=== PATIENT | male | born 1955 | race Caucasian/White ===

== ENCOUNTER 2016-07-24 01:26 | Day surgery (SDC) | payer MEDICAID ==
[~2016-07-24 01:26] MED LIST: AMLO5TAB2 PO; ASPI-973 PO; CHOL10008 PO; DEXL60CA5 PO; FISH1CAP15 PO; FLUO20CA25 PO; ISOS20TA4 PO; LEVO88TA4 PO; METO-272 PO; NITR0.4T6 SL; PANT40TA2 PO; RANI150T11 PO; VIT1TABL83 PO
[2016-07-24] MEDS ORDERED: Lactated Ringer's 1,000 ML IV ONE (06:00)
--- NOTE | 2016-07-24 07:29 | PCM.HPANE ---
Patient Data Surgeon Admitting Provider: Attending Provider:Israel Gibson MD Primary Care Physician:Shan Howe DO Other [place] Anesthesia Reason for Visit Screening, Epigastric Pain Ht/WT & BMI Body Mass Index Allergies Coded Allergies: gemfibrozil (Verified Allergy, Severe, Rash, 05/04/15) pravastatin (Verified Allergy, Severe, MYALGIAS, 05/04/15) ranolazine (Verified Allergy, Severe, EDEMA, HEARTBURN, 05/04/15) Past Anesthesia History Anesthesia History: Denies:: Abnormal Airway, Anesthesia Reactions, Difficult Intubation, Fam Anesthesia Reaction, Fam Malignant Hypertherm, Malignant Hyperthermia Diabetes History Hx Diabetes?: No MRSA MRSA: No Medications Blood Thinner: Aspirin Active Scripts Pantoprazole DR (Protonix)40 Mg Noworm05 Mg PO BID #60 TABLET Ref 0 Prov:Oscar Wilder 02/04/15 Metoprolol Succinate ER 50 Mg Vwmgwz83 Mg PO BID #60 Prov:Oscar Wilder 02/04/15 Reported Medications Dexlansoprazole ER (Dexilant)60 Mg Eituawm87 Mg PO DAILY 30 Days Ref 0 07/23/16 Ranitidine (Zantac)150 Mg Pgdrwr785 Mg PO BID 07/23/16 Cholecalciferol (Vitamin D3) (Vitamin D3)1,000 Unit Tab.chew1,000 Unit PO DAILY 09/27/15 Isosorbide MN 20 Mg Jkgjja72 Mg PO DAILY 05/06/15 Amlodipine 5 Mg Tablet5 Mg PO DAILY Ref 0 05/04/15 Vit B Comp/C/FA/Iron/Vit E (Vitamin B Complex Tablet)1 Each Tablet1 Each PO DAILY 02/02/15 Aspirin 81 Mg Qzyjef86 Mg PO HS 02/02/15 Fish Oil/Dha/Epa (Fish Oil 1,200 mg Fish Oil)1 Each Capsule1 Each PO PRN 07/16/14 Fluoxetine 20 Mg Jajieoh07 Mg PO MORNING 06/28/14 Levothyroxine 88 Mcg Ximglj18 Mcg PO HS 12/07/13 Nitroglycerin SL 0.4 Mg Tab.subl0.4 Mg SL PRN PRN For Chest Pain 12/07/13 Discontinued Reported Medications Pregabalin (Lyrica)75 Mg Dgimvjt862 Mg PO HS 02/02/15 Pregabalin (Lyrica)75 Mg Gwqlgew11 Mg PO MORNING 02/02/15 History History of ENT Problems?: Yes HEENT History: Positive for:: Cataracts (needs to get them done still) Dysphagia (due to reflux) Denies:: Abnormal Airway Difficult Intubation Hearing Problem Sinus Problem TMJ Hx of Heart Problems?: Yes Cardiovascular History: Positive for:: Cardiac Surgery (angioplasty, stents 2000, 2010, 2011) Chest Pain (MULT MN'S/ANGINA) Hypertension Denies:: Atrial Fibrillation Congestive Heart Failure Edema Heart Murmur Irregular Heartbeat Pacemaker Thrombophlebitis Valvular Heart Disease Hx of Respiratory Problem?: No Respiratory History: Denies:: Asthma COPD Chest Surgery Dyspnea Emphysema Hemoptysis Pneumonia Tuberculosis Hx Neurologic Problems?: No Neurological History: Positive for:: Dizziness Denies:: Alzheimer's Disease CVA Dementia Headaches Parkinson's Disease Seizures Hx of GI Problems?: No Gastrointestinal History: Positive for:: Gastroesphageal Reflux Heartburn Rectal Bleeding (BLACK TARRY X1) Denies:: Cirrhosis Diverticulitis Gastrointestinal Bleeding Hepatitis Hiatal Hernia Hx of Problems?: No Genitourinary History: Denies:: HX of Hemodialysis Kidney Stones Urinary Tract Infection HX of Peritoneal Dialysis: No Male Hx: Positive for:: Prostate Problems (PROSTATISTIS ) Denies:: Scrotal Mass Testicular Surgery Skin History: Positive for:: History Skin Disorders? 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 Category 1B: Patient has history of documented sleep apnea, and HAS received any narcotic , sedative or anesthesia administration during this stay Category 2: Patient has SUSPECTED Obstructive Sleep Apnea, and HAS received any narcotic , sedative or anesthesia administration during this stay. Category 3: Patient has SUSPECTED Obstructive Sleep Apnea and HAS NOT received narcotic, sedative or anesthesia administration during this stay. Category 4: Outpatient in Procedural Areas with known sleep apnea or who screen positive for High Risk via the STOP/BANG questionnaire. Plan Impression Patient chart reviewed, patient interviewed and anesthestic plan with risks, benefits, and alternatives discussed, and informed consent obtained. NPO Status: 07/19 at 1800 Franco Blanco MD Jul 24, 2016 07:29
[2016-09-26] MEDS ORDERED: LEVO100T6 PO (14:21)
[2016-09-26] MEDS ORDERED: LISI-571 PO (14:21)
[2016-09-26] MEDS ORDERED: CLOP75TA3 PO (14:21)
== END 2016-07-24 23:59 | disposition home or self-care (01) ==
LOC: END 01:26
PROVIDERS: ATTEND Internal Medicine Gastroenterology
DX: Z12.11 Encounter for screening for malignant neoplasm of colon (principal); R10.13 Epigastric pain; Z53.8 Procedure and treatment not carried out for other reasons

== ENCOUNTER 2016-11-06 10:30 | Day surgery (SDC) | payer MEDICAID ==
[~2016-11-06] VITALS: Ht 165.1 cm; Wt 70.3 kg
[~2016-11-06 10:30] MED LIST changes: -AMLO5TAB2 PO; +CLOP75TA3 PO; -DEXL60CA5 PO; +GABA-502 PO; +LEVO100T6 PO; -LEVO88TA4 PO; +LISI-571 PO; +Lactated Ringer's 1,000 ML IV ONE; +NORT50CA PO; -RANI150T11 PO; +SUCR1TAB30 PO
[2016-11-06] MEDS ORDERED: fentaNYL-PF 50 mCg/mL 2 mL Inj ONE (10:31)
[2016-11-06] MEDS ORDERED: Propofol 10,000 mCg/mL 20 mL Inj ONE (10:31)
[2016-11-06 11:12] VITALS: BP 112/64; PULSE 67; RESP 16; O2SAT 99
--- NOTE | 2016-11-06 11:40 | PCM.HPANE ---
Patient Data Surgeon Admitting Provider: Attending Provider:Israel Gibson MD Primary Care Physician:Gia Bellamy DO Other Provider:Chelsy Romo Anesthesia Reason for Visit Colon Ca Screen/Epigastric Pain Z12.11 R10.13 Ht/WT & BMI Height (Feet): 5 Height (Inches): 5 Weight (Kilograms): 70.31 Body Mass Index 25.00 Allergies Coded Allergies: gemfibrozil (Verified Allergy, Severe, Rash, 05/04/15) pravastatin (Verified Allergy, Severe, MYALGIAS, 05/04/15) ranolazine (Verified Allergy, Severe, EDEMA, HEARTBURN, 05/04/15) Gkmasad-Suz-Rwq Reductase Inhibitor (Verified Allergy, Unknown, 11/05/16) ezetimibe (Verified Allergy, Unknown, 11/05/16) pregabalin (Verified Allergy, Unknown, 11/05/16) Past Anesthesia History Anesthesia History: Denies:: Abnormal Airway, Anesthesia Reactions, Difficult Intubation, Fam Anesthesia Reaction, Fam Malignant Hypertherm, Malignant Hyperthermia Diabetes History Hx Diabetes?: No MRSA MRSA: No Medications Blood Thinner: Aspirin, Plavix Last Dose Blood Thinner: Oct 30, 2016 Home Meds Incl Beta Chaka: Yes Date Beta Chaka Taken: Nov 06, 2016 Time Beta Chaka Taken: [address] (Protonix)40 Mg Zlkdqo64 Mg PO BID #60 TABLET Ref 0 Prov:Oscar Wilder 02/04/15 Metoprolol Succinate ER 50 Mg Adkawy85 Mg PO BID #60 Prov:Oscar Wilder 02/04/15 Reported Medications Vit B Comp/C/FA/Iron/Vit E (Vitamin B Complex Tablet)1 Each Tablet1 Each PO DAILY 11/05/16 Nortriptyline 50 Mg Ahsaide84 Mg PO DAILY 11/05/16 Gabapentin 300 Mg Pafxwxd418 Mg PO TID Ref 0 11/05/16 Clopidogrel Bisulfate (Plavix)75 Mg Edkuuu66 Mg PO DAILY Ref 0 09/26/16 Lisinopril 5 Mg Tablet5 Mg PO DAILY Ref 0 09/26/16 Levothyroxine 100 Mcg Mkpdaa901 Mcg PO DAILY For Thyroid Replacement Ref 0 09/26/16 Cholecalciferol (Vitamin D3) (Vitamin D3)1,000 Unit Tab.chew2,000 Unit PO DAILY 5/31/16 Isosorbide MN 20 Mg Jbmkuh70 Mg PO DAILY 05/06/15 Vit B Comp/C/FA/Iron/Vit E (Vitamin B Complex Tablet)1 Each Tablet1 Each PO DAILY 02/02/15 Aspirin 81 Mg Mnxznw61 Mg PO HS 02/02/15 Fish Oil/Dha/Epa (Fish Oil 1,200 mg Fish Oil)1 Each Capsule1 Each PO PRN 07/16/14 Fluoxetine 20 Mg Cwghcqf69 Mg PO MORNING 06/28/14 Nitroglycerin SL 0.4 Mg Tab.subl0.4 Mg SL PRN PRN For Chest Pain 12/07/13 Discontinued Reported Medications Sucralfate (Carafate)1 Gm Tablet1 Gm PO QID Ref 0 11/05/16 History History of ENT Problems?: Yes HEENT History: Positive for:: Cataracts (needs to get them done still) Dysphagia (BAD EPSIDOSE IN JULY ) Denies:: Abnormal Airway Difficult Intubation Hearing Problem Sinus Problem TMJ Denture Type: None Teeth Condition: Within Normal Limits Hx of Heart Problems?: Yes Cardiovascular History: Positive for:: Cardiac Surgery (angioplasty, stents 2000, 2010, 2011) Chest Pain (LAST TOOK NITRO IN 08/2016) Hypertension Denies:: AICD Atrial Fibrillation (HX OF RUN OF V-TACH. FREQUENT PAC'S) Congestive Heart Failure Edema Heart Murmur Irregular Heartbeat Pacemaker Thrombophlebitis Valvular Heart Disease Other Cardiac History: NEW ONSET EDEMA IN [id number]. PT IS SCHEDULED TO HAVE AN ECHO SOON. Hx of Respiratory Problem?: No Respiratory History: Denies:: Asthma COPD Chest Surgery Cough Dyspnea Emphysema Hemoptysis Pneumonia Tuberculosis Hx Neurologic Problems?: No Neurological History: Positive for:: Dizziness Denies:: Alzheimer's Disease CVA Dementia Headaches Parkinson's Disease Seizures Hx of GI Problems?: Yes Hx of Problems?: No Genitourinary History: Denies:: HX of Hemodialysis Kidney Stones Urinary Tract Infection HX of Peritoneal Dialysis: No Male Hx: Positive for:: Prostate Problems (PROSTATISTIS ) Denies:: Scrotal Mass Testicular Surgery Skin History: Positive for:: History Skin Disorders? 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, squamous cell currently treating) Hospitalization Thyroid Disease (thyroidectomy r/t cancer on 01/2012) Denies:: Endocrine Disease History Blood Transfusions: Denies:: Blood Transfuse Reaction Blood Transfusions Hx Diabetes: No Hx Alcohol Use: NoHx Substance Use: No Smoking Status: Current Every Day Smoker Have You Smoked inLast 12 mo: Yes (1-2 CIGARETTE DAILY) Stop/Bang Treated for Sleep Apnea?: No Do You Have a CPAP Machine?: No S-Snoring: Do You Snore Loudly: No T-Tired: feel tired, fatigued: No O-Obsered: Observed not breath: No P-Blood Pressure: treated: Yes B- Body Mass Index > 35 kg/m2: No A- Age over 50: Yes N- Neck Large Circumference: No G- Gender Male: Yes AUSTIN Total Score: 3 [place] Risk Assessment: Low Risk, <3 Yes Risk Assessment Category Category 1A: Patient has history of documented sleep apnea, and HAS NOT received any narcotic, sedative or anesthesia administration during this stay. Category 1B: Patient has history of documented sleep apnea, and HAS received any narcotic , sedative or anesthesia administration during this stay Category 2: Patient has SUSPECTED Obstructive Sleep Apnea, and HAS received any narcotic , sedative or anesthesia administration during this stay. Category 3: Patient has SUSPECTED Obstructive Sleep Apnea and HAS NOT received narcotic, sedative or anesthesia administration during this stay. Category 4: Outpatient in Procedural Areas with known sleep apnea or who screen positive for High Risk via the STOP/BANG questionnaire. Exam Exam Vital Signs Vital Signs Date Time Temp Pulse Resp B/P Pulse Ox O2 Delivery O2 Flow Rate FiO2 11/06/16 11:12 36.4 67 16 112/64 99 Room Air General Appearance: Alert, Oriented X3, Cooperative, No Acute Distress HEENT/AIRWAY: MP 3 Lungs: Clear to Auscultation, Normal Air Movement Heart: Exam Unremarkable, Regular Rate/Rhythm, No Murmurs/Rubs/Gallops Meds/Labs/Diagnostics Admission Meds Current Medications Lactated Ringer's (Lr) 1,000 ml @ 10 mls/hr Q24H ONCE IV Last administered on 11/06/16t 11:26; Start 11/06/16 at 06:00; Stop 11/07/16 at 05:59 Plan Impression Patient chart reviewed, patient interviewed and anesthestic plan with risks, benefits, and alternatives discussed, and informed consent obtained. NPO per Anesth. Guidelines: Yes ASA Physical Status: ASA3 Severe Disease Anesthetic Plan: MAC Bene/Risks/Altern/Consents: Yes HP Complete Prior to Induction: Yes Babak Coker MD Nov 06, 2016 11:40
[2016-11-06] MEDS ORDERED: Lactated Ringer's 1,000 ML IV SCH (12:08)
[2016-11-06] MEDS ORDERED: Ondansetron 2 mg/mL 2 mL Inj IVPUSH PRN (12:10)
[2016-11-06] MEDS ORDERED: MetoCLOpramide 5 mg/mL 2 mL Inj IVPUSH PRN (12:10)
[2016-11-06 12:21] VITALS: BP 98/56; PULSE 58; RESP 14; O2SAT 94
[2016-11-06 12:31] VITALS: BP 105/60; PULSE 63; RESP 14; O2SAT 97
[2016-11-06 12:38] VITALS: BP 117/71; PULSE 68; RESP 12; O2SAT 96
--- NOTE | 2016-11-06 13:22 | ENDO ---
[address] [address] ENDOSCOPY PROCEDURE PATIENT: ESTEFANIA HEIN : 1955 MR#: [id number] ADMIT: 11/06/2016 JOB ID: [id number] DATE: 11/06/2016 TYPE OF OPERATION: 1. Esophagogastroduodenoscopy with biopsy. 2. Colonoscopy. PREOPERATIVE DIAGNOSIS(ES): Epigastric screening. Colorectal cancer screening. POSTOPERATIVE DIAGNOSIS(ES): 1. Normal upper endoscopy, status post biopsy. 2. Fair prep but normal colonoscopy. ANESTHESIA: Monitored anesthesia care. COMPLICATIONS: None. BLOOD LOSS: Minimal. DESCRIPTION OF PROCEDURE: After risks and benefits were explained to the patient, informed consent was obtained. After anesthesia administered, upper endoscope was then inserted into the mouth intubating the esophagus, stomach, second portion of duodenum, and the mucosa carefully examined. After procedure was done, the scope was withdrawn and procedure terminated. Colonoscope was then inserted per rectum to cecum. The prep of the patient was suboptimal to fair. After procedure was done, the scope was withdrawn and procedure terminated. FINDINGS: Upon inspection of the esophagus, the esophagus was normal without masses, ulcers or lesions. Z-line located 40 cm from incisors. Upon entering the stomach, the stomach was normal without masses, ulcers or lesions. Retroflexion was normal. Duodenal bulb, first and second portion normal. Biopsies taken in the antrum and body of the stomach. Upon inspection of the anus, no masses, hemorrhoids, ulcers, or fissures that were seen. Throughout the entire examination, there was suboptimal to fair prep in which there was moderate amount of prior food that was seen. No masses, ulcers, or lesions were seen. Retroflexion was normal. IMPRESSIONS: 1. Normal colonoscopy but fair to suboptimal prep. 2. Normal upper endoscopy status post biopsy. RECOMMENDATION: 1. Await pathology results. 2. Repeat colonoscopy five years for colorectal cancer screening given the prep of this colonoscopy. 3. Followup in the GI Clinic as needed.
--- NOTE | 2016-11-06 13:25 | PCM.ANEP1 ---
Post Anesthesia PACU Phase 1 Assessment Vital Signs Vital Signs Date Time Temp Pulse Resp B/P Pulse Ox O2 Delivery O2 Flow Rate FiO2 11/06/16 12:38 68 12 117/71 96 Room Air 11/06/16 12:31 63 14 105/60 97 Room Air 11/06/16 12:21 35.9 58 14 98/56 94 Room Air 11/06/16 11:12 36.4 67 16 112/64 99 Room Air Anesthetic Administered: MAC Level of Alertness: Awake, talking TERRAZAS's with Equal Strength: Yes Pain: No Nausea or Vomiting: No CV Function & Hydration Stable: Yes Airway Device: Oxygen Delivery: Room Air Lungs: Clear to Auscultation, Normal Air Movement Dermatome Level: Full Sensation PACU Phase 2 Assessment Complications: No Follow up Care: N/A Patient Instructions Provided: Yes Babak Coker MD Nov 06, 2016 13:24
--- NOTE | 2016-11-08 17:52 | PATH ---
SURGICAL PATHOLOGY Attending Physician:Israel Gibson MD CASE STATUS: Signed Out PATIENT NAME: ESTEFANIA HEIN PID: [id number] : 1955 DATE COLLECTED:11/06/2016 22:42 SPECIMEN: 1: Stomach, Antrum, Biopsy 2: Gastric, Biopsy CLINICAL HISTORY: 1). ANTRUM BIOPSY 2). GASTRIC BODY BIOPSY FINAL DIAGNOSIS: 1.STOMACH, ANTRUM, BIOPSY: ANTRAL MUCOSA WITH NO DIAGNOSTIC ABNORMALITY. Negative for Helicobacter organisms. Negative for intestinal metaplasia. Negative for dysplasia and malignancy. 2.STOMACH, BODY, BIOPSY: BODY-TYPE MUCOSA WITH PROTON PUMP INHIBITOR-LIKE CHANGES. Negative for Helicobacter organisms. Negative for intestinal metaplasia. Negative for dysplasia and malignancy. ICD10 R10.9 GROSS DESCRIPTION: Received two formalin-filled containers, both labeled with the patient' s name: 1. In a container labeled "antrum", the specimen consists of two portions of tissue which aggregate to 0.4 x 0.3 x 0.2 cm. The specimen is entirely submitted in cassette 1A. 2. In a container labeled "gastric body", the specimen consists of two portions of tissue which aggregate to 0.3 x 0.3 x 0.2 cm. The specimen is entirely submitted in cassette 2A. (DC:[facility] [id number]) MICRO DESCRIPTION: See diagnosis. ICD-9 CODES: CPT CODES: 1: 06169 2: 00025 Electronically Signed Out Jaqui Delgado MD [facility] Pathology [facility] [address], [place] [address] Technical component performed at [facility], [facility] [address], [place], [address]
== END 2016-11-06 23:59 | disposition home or self-care (01) ==
LOC: END 10:30
PROVIDERS: ATTEND Internal Medicine Gastroenterology
DX: Z12.11 Encounter for screening for malignant neoplasm of colon (principal); R10.13 Epigastric pain; I10 Essential (primary) hypertension; Z95.5 Presence of coronary angioplasty implant and graft; Z79.02 Long term (current) use of antithrombotics/antiplatelets; Z79.82 Long term (current) use of aspirin; F17.210 Nicotine dependence, cigarettes, uncomplicated
CPT/HCPCS: 43239; G0121; J2250; J3010; J7120